=== PATIENT | male | born 1945 | race Caucasian/White ===

== ENCOUNTER 2018-02-06 17:31 | Emergency (ER) | payer OTHER ==
[~2018-02-06] VITALS: Ht 172.7 cm; Wt 78.0 kg
[~2018-02-06 17:31] MED LIST: ASPIRIN81 M1 PO; IRON325 M1 PO; LIPITOR40 MG PO; LISINOPRIL20 MG PO; LUTEIN20 MG PO; NEXIUM40 MG PO; NIASPAN,SLO-N1000 MG PO; PLAVIX75 MG PO; REMERON30 M2 PO; VITACON FORTE PO
[2018-02-06] MEDS ORDERED: MOTRIN800 MG PO (18:00)
[2018-02-06] MEDS ORDERED: OCUFLOX 0.100 DROP/5 LEFT EYE (18:00)
[2018-02-06 18:42] VITALS: BP 155/56
== END 2018-02-06 18:01 | disposition home or self-care (01) ==
LOC: EME 17:31
DX: S05.02XA Injury of conjunctiva and corneal abrasion without foreign body, left eye, initial encounter (principal); W20.8XXA Other cause of strike by thrown, projected or falling object, initial encounter; I10 Essential (primary) hypertension; E78.5 Hyperlipidemia, unspecified; I25.2 Old myocardial infarction; Z95.5 Presence of coronary angioplasty implant and graft; Z95.0 Presence of cardiac pacemaker; Z79.02 Long term (current) use of antithrombotics/antiplatelets; Z79.82 Long term (current) use of aspirin; Z87.891 Personal history of nicotine dependence
CPT/HCPCS: 99281; 99284